=== PATIENT | male | born 1965 | race Native Hawaiian/Other Pacific Islander ===

== ENCOUNTER 2016-07-24 07:38 | Day surgery (SDC) | payer BC | END 2016-07-24 09:55 | disposition home or self-care (01) | LOC: OR 07:38 | PROC: 0DJD8ZZ Inspection of Lower Intestinal Tract, Via Natural or Artificial Opening Endoscopic (ICD-10-PCS; principal; 2016-07-24) | DX: K57.30 Diverticulosis of large intestine without perforation or abscess without bleeding (principal); K64.8 Other hemorrhoids; Z12.11 Encounter for screening for malignant neoplasm of colon; K92.1 Melena | CPT/HCPCS: J2704 ==

== ENCOUNTER 2021-05-09 08:19 | Outpatient (CLI) | payer OTHER | END 2021-05-09 18:50 | disposition home or self-care (01) | LOC: LABW 08:19 | PROVIDERS: ATTEND Physician Assistant | DX: Z79.01 Long term (current) use of anticoagulants (principal) | CPT/HCPCS: 36415; 85610 ==

== ENCOUNTER 2021-05-11 07:50 | Outpatient (CLI) | payer OTHER | END 2021-05-11 19:08 | disposition home or self-care (01) | LOC: LABW 07:50 | PROVIDERS: ATTEND Physician Assistant | DX: Z79.01 Long term (current) use of anticoagulants (principal) | CPT/HCPCS: 36415; 85610 ==

== ENCOUNTER 2021-05-13 07:37 | Outpatient (CLI) | payer OTHER | END 2021-05-13 19:22 | disposition home or self-care (01) | LOC: LABW 07:37 | PROVIDERS: ATTEND Physician Assistant | DX: Z79.01 Long term (current) use of anticoagulants (principal) | CPT/HCPCS: 36415; 85610 ==

== ENCOUNTER 2021-05-16 07:39 | Outpatient (CLI) | payer OTHER | END 2021-05-16 18:46 | disposition home or self-care (01) | LOC: LABW 07:39 | PROVIDERS: ATTEND Physician Assistant | DX: Z79.01 Long term (current) use of anticoagulants (principal) | CPT/HCPCS: 36415; 85610 ==

== ENCOUNTER 2021-05-19 10:52 | Outpatient (CLI) | payer OTHER | END 2021-05-19 19:20 | disposition home or self-care (01) | LOC: RAD 10:52 | PROVIDERS: ATTEND Physician Assistant | DX: R06.02 Shortness of breath (principal) ==

== ENCOUNTER 2021-05-20 08:06 | Outpatient (CLI) | payer OTHER | END 2021-05-20 19:57 | disposition home or self-care (01) | LOC: LABW 08:06 | PROVIDERS: ATTEND Physician Assistant | DX: Z79.01 Long term (current) use of anticoagulants (principal) | CPT/HCPCS: 36415; 85610 ==

== ENCOUNTER 2021-05-23 07:32 | Outpatient (CLI) | payer OTHER | END 2021-05-23 19:06 | disposition home or self-care (01) | LOC: LABW 07:32 | PROVIDERS: ATTEND Physician Assistant | DX: Z79.01 Long term (current) use of anticoagulants (principal) | CPT/HCPCS: 36415; 85610 ==

== ENCOUNTER 2021-05-25 07:35 | Outpatient (CLI) | payer OTHER | END 2021-05-25 19:06 | disposition home or self-care (01) | LOC: LABW 07:35 | PROVIDERS: ATTEND Physician Assistant | DX: Z79.01 Long term (current) use of anticoagulants (principal) | CPT/HCPCS: 36415; 85610 ==

== ENCOUNTER 2021-05-27 07:30 | Outpatient (CLI) | payer OTHER | END 2021-05-27 21:33 | disposition home or self-care (01) | LOC: LABW 07:30 | PROVIDERS: ATTEND Physician Assistant | DX: Z79.01 Long term (current) use of anticoagulants (principal) | CPT/HCPCS: 36415; 85610 ==

== ENCOUNTER 2021-05-30 07:43 | Outpatient (CLI) | payer OTHER | END 2021-05-30 18:57 | disposition home or self-care (01) | LOC: LABW 07:43 | PROVIDERS: ATTEND Physician Assistant | DX: Z79.01 Long term (current) use of anticoagulants (principal) | CPT/HCPCS: 36415; 85610 ==

== ENCOUNTER 2021-06-03 07:42 | Outpatient (CLI) | payer OTHER | END 2021-06-03 19:31 | disposition home or self-care (01) | LOC: LABW 07:42 | PROVIDERS: ATTEND Physician Assistant | DX: Z79.01 Long term (current) use of anticoagulants (principal) | CPT/HCPCS: 36415; 85610 ==

== ENCOUNTER 2021-06-06 07:35 | Outpatient (CLI) | payer OTHER | END 2021-06-06 19:02 | disposition home or self-care (01) | LOC: LABW 07:35 | PROVIDERS: ATTEND Physician Assistant | DX: Z79.01 Long term (current) use of anticoagulants (principal) | CPT/HCPCS: 36415; 85610 ==

== ENCOUNTER 2021-06-10 07:34 | Outpatient (CLI) | payer OTHER | END 2021-06-10 19:48 | disposition home or self-care (01) | LOC: LABW 07:34 | PROVIDERS: ATTEND Physician Assistant | DX: Z79.01 Long term (current) use of anticoagulants (principal) | CPT/HCPCS: 36415; 85610 ==

== ENCOUNTER 2021-06-20 07:29 | Outpatient (CLI) | payer OTHER | END 2021-06-20 19:05 | disposition home or self-care (01) | LOC: LABW 07:29 | PROVIDERS: ATTEND Physician Assistant | DX: Z79.01 Long term (current) use of anticoagulants (principal) | CPT/HCPCS: 36415; 85610 ==

== ENCOUNTER 2021-07-04 07:28 | Outpatient (CLI) | payer OTHER | END 2021-07-04 19:06 | disposition home or self-care (01) | LOC: LABW 07:28 | PROVIDERS: ATTEND Physician Assistant | DX: Z79.01 Long term (current) use of anticoagulants (principal) | CPT/HCPCS: 36415; 85610 ==

== ENCOUNTER 2021-07-08 07:27 | Outpatient (CLI) | payer OTHER | END 2021-07-08 20:23 | disposition home or self-care (01) | LOC: LABW 07:27 | PROVIDERS: ATTEND Physician Assistant | DX: Z79.01 Long term (current) use of anticoagulants (principal) | CPT/HCPCS: 36415; 85610 ==

== ENCOUNTER 2021-07-11 07:26 | Outpatient (CLI) | payer OTHER | END 2021-07-11 20:42 | disposition home or self-care (01) | LOC: LABW 07:26 | PROVIDERS: ATTEND Physician Assistant | DX: Z79.01 Long term (current) use of anticoagulants (principal) | CPT/HCPCS: 36415; 85610 ==

== ENCOUNTER 2021-07-15 07:32 | Outpatient (CLI) | payer OTHER | END 2021-07-15 18:51 | disposition home or self-care (01) | LOC: LABW 07:32 | PROVIDERS: ATTEND Physician Assistant | DX: Z79.01 Long term (current) use of anticoagulants (principal) | CPT/HCPCS: 36415; 85610 ==

== ENCOUNTER 2021-07-18 07:26 | Outpatient (CLI) | payer OTHER | END 2021-07-18 18:51 | disposition home or self-care (01) | LOC: LABW 07:26 | PROVIDERS: ATTEND Physician Assistant | DX: Z79.01 Long term (current) use of anticoagulants (principal) | CPT/HCPCS: 36415; 85610 ==

== ENCOUNTER 2021-07-22 07:26 | Outpatient (CLI) | payer OTHER | END 2021-07-22 19:55 | disposition home or self-care (01) | LOC: LABW 07:26 | PROVIDERS: ATTEND Physician Assistant | DX: Z79.01 Long term (current) use of anticoagulants (principal) | CPT/HCPCS: 36415; 85610 ==

== ENCOUNTER 2021-07-26 07:31 | Outpatient (CLI) | payer OTHER | END 2021-07-26 18:55 | disposition home or self-care (01) | LOC: LABW 07:31 | PROVIDERS: ATTEND Physician Assistant | DX: Z79.01 Long term (current) use of anticoagulants (principal) | CPT/HCPCS: 36415; 85610 ==

== ENCOUNTER 2021-07-29 07:29 | Outpatient (CLI) | payer OTHER | END 2021-07-29 20:29 | disposition home or self-care (01) | LOC: LABW 07:29 | PROVIDERS: ATTEND Physician Assistant | DX: Z79.01 Long term (current) use of anticoagulants (principal) | CPT/HCPCS: 36415; 85610 ==

== ENCOUNTER 2021-08-01 07:33 | Outpatient (CLI) | payer OTHER | END 2021-08-01 18:48 | disposition home or self-care (01) | LOC: LABW 07:33 | PROVIDERS: ATTEND Physician Assistant | DX: Z79.01 Long term (current) use of anticoagulants (principal) | CPT/HCPCS: 36415; 85610 ==

== ENCOUNTER 2021-08-05 07:27 | Outpatient (CLI) | payer OTHER | END 2021-08-05 18:52 | disposition home or self-care (01) | LOC: LABW 07:27 | PROVIDERS: ATTEND Physician Assistant | DX: Z79.01 Long term (current) use of anticoagulants (principal) | CPT/HCPCS: 36415; 85610 ==

== ENCOUNTER 2021-08-12 07:34 | Outpatient (CLI) | payer OTHER | END 2021-08-12 19:23 | disposition home or self-care (01) | LOC: LABW 07:34 | PROVIDERS: ATTEND Physician Assistant | DX: Z79.01 Long term (current) use of anticoagulants (principal) | CPT/HCPCS: 36415; 85610 ==

== ENCOUNTER 2021-08-19 07:29 | Outpatient (CLI) | payer OTHER | END 2021-08-19 19:16 | disposition home or self-care (01) | LOC: LABW 07:29 | PROVIDERS: ATTEND Physician Assistant | DX: Z79.01 Long term (current) use of anticoagulants (principal) | CPT/HCPCS: 36415; 85610 ==

== ENCOUNTER 2021-08-26 07:39 | Outpatient (CLI) | payer OTHER | END 2021-08-26 20:24 | disposition home or self-care (01) | LOC: LABW 07:39 | PROVIDERS: ATTEND Physician Assistant | DX: Z79.01 Long term (current) use of anticoagulants (principal) | CPT/HCPCS: 36415; 85610 ==

== ENCOUNTER 2021-09-02 07:29 | Outpatient (CLI) | payer OTHER | END 2021-09-02 21:08 | disposition home or self-care (01) | LOC: LABW 07:29 | PROVIDERS: ATTEND Physician Assistant | DX: Z79.01 Long term (current) use of anticoagulants (principal) | CPT/HCPCS: 36415; 85610 ==

== ENCOUNTER 2021-09-15 07:37 | Outpatient (CLI) | payer OTHER | END 2021-09-15 20:32 | disposition home or self-care (01) | LOC: LABW 07:37 | PROVIDERS: ATTEND Physician Assistant | DX: Z79.01 Long term (current) use of anticoagulants (principal) | CPT/HCPCS: 36415; 85610 ==

== ENCOUNTER 2021-10-13 07:28 | Outpatient (CLI) | payer OTHER | END 2021-10-13 19:38 | disposition home or self-care (01) | LOC: LABW 07:28 | PROVIDERS: ATTEND Physician Assistant | DX: Z79.01 Long term (current) use of anticoagulants (principal) | CPT/HCPCS: 36415; 85610 ==

== ENCOUNTER 2021-10-17 07:32 | Outpatient (CLI) | payer OTHER | END 2021-10-17 18:54 | disposition home or self-care (01) | LOC: LABW 07:32 | PROVIDERS: ATTEND Physician Assistant | DX: Z79.01 Long term (current) use of anticoagulants (principal) | CPT/HCPCS: 36415; 85610 ==

== ENCOUNTER 2021-11-08 09:42 | Outpatient (CLI) | payer OTHER | END 2021-11-08 18:59 | disposition home or self-care (01) | LOC: LABW 09:42 | PROVIDERS: ATTEND Physician Assistant | DX: Z79.01 Long term (current) use of anticoagulants (principal) | CPT/HCPCS: 36415; 85610 ==

== ENCOUNTER → 2021-12-20 | Outpatient (CLI) | payer OTHER | LOC: LABW 07:29 | PROVIDERS: ATTEND Physician Assistant | DX: Z79.01 Long term (current) use of anticoagulants (principal) | CPT/HCPCS: 36415; 85610 ==